=== PATIENT | male | born 1965 | race Caucasian/White ===

== ENCOUNTER 2022-02-22 18:06 | Emergency (ER) | payer BC, SELFPAY ==
[2022-02-22 18:30] VITALS: BP 152/80; PULSE 78; RESP 16; O2SAT 78
--- NOTE | 2022-02-22 18:51 | ED.WOUNDLAC ---
HPI - Wound/Laceration General Chief Complaint: Wound/Laceration Stated Complaint: cut on hand Time Seen by Provider: 02/22/22 18:52 History of Present Illness HPI narrative: 56-year-old male patient is here with a cut to his left hand on a sheet metal around 4:30 p.m. this afternoon. The bleeding has been controlled. Patient is up-to-date on his tetanus. He denies any numbness or tingling of his hand or fingers. He denies any other injuries. Patient is generally in good health. No COVID exposure an COVID vaccination is up-to-date. Related Data Home Medications Medication Instructions Recorded Confirmed Unable to Obtain Home Medications 02/22/22 02/22/22 Allergies Allergy/AdvReac Type Severity Reaction Status Date / Time No Known Allergies Allergy Verified 02/22/22 18:42 Review of Systems Review of Systems: All systems reviewed & are unremarkable except as noted in HPI and below PMFSH Past Medical History Medical History Hypertension Exam Narrative: Alert male patient with stable vital signs in no acute distress. Normal HEENT No respiratory distress. Lungs are clear. Skin is warm and dry color is normal. Left hand has approximately 2.5 cm superficial laceration on the dorsal ulnar border of the wrist. There is minimal gaping and the laceration is full-thickness skin. There are no tendons involved . bleeding is controlled. Sensation to the distal hand over the ulnar side nerve distribution is intact. 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 Patient has a good range of motion at the wrist. A superficial abrasion extends from the laceration dorsally into the wrist but is not bleeding and or gaping. The rest of the physical examination is normal with regards to the neurologic exam. mood and affect are normal. Course Vital Signs Vital signs: Vital Signs Pulse Rate 78 02/22/22 18:30 Respiratory Rate 16 02/22/22 18:30 Blood Pressure 152/80 H 02/22/22 18:30 Pulse Oximetry 78 L 02/22/22 18:30 Pulse Rate 78 02/22/22 18:30 Respiratory Rate 16 02/22/22 18:30 Blood Pressure 152/80 H 02/22/22 18:30 Pulse Oximetry 78 L 02/22/22 18:30 Procedures Laceration Laceration 1: Date: 02/22/22 Time: 19:19 Site: hand Side (If applicable): left Size (cm): 2.5 Description: linear Depth: simple, single layer Local Anesthetic: lidocaine 1% Amount of anesthesia used (mL): 3 ====== Skin Level ====== Skin layer closed with: nylon Size (cm): 4-0 Number of sutures: 5 Technique: simple, interrupted ====== Subcutaneous Layer ====== ====== Muscle Layer ====== ====== Tendon Layer ====== Discharge Plan Discharge Clinical Impression: Laceration of hand Patient Disposition: Home, Self-Care Condition: Stable Instructions: Laceration (ED), Antibiotic Form Additional Instructions: Keep the wound dry and clean Wound recheck in 3 days with your MD See your doctor sooner or return here if worse . Suture removal in 7 days Prescriptions: No Action Unable to Obtain Home Medications RF: 0 Follow-up/Referrals: Anabela,MD Brigitte [Primary Care Provider] -
[2022-02-22] MEDS: LIDOCAINE HCL 1% LOCAL INJ 10 ML VIAL (19:24)
[2022-02-22 19:56] VITALS: BP 145/78; PULSE 75; RESP 18; TEMP 36.4; O2SAT 99
== END 2022-02-22 19:57 | disposition home or self-care (01) ==
PROVIDERS: Emergency Provider Emergency Medicine; PCP Internal Medicine Geriatric Medicine
DX: S61.412A Laceration without foreign body of left hand, initial encounter (principal); W45.8XXA Other foreign body or object entering through skin, initial encounter
CPT/HCPCS: 12001; 99282